=== PATIENT | female | born 1980 | race African-American/Black ===

== ENCOUNTER 2017-06-13 17:22 | Emergency (ER) | payer OTHER ==
[~2017-06-13] VITALS: Ht 160 cm; Wt 82.6 kg
[~2017-06-13 17:22] MED LIST: MULT1CAP28 PO
[2017-06-13 17:27] VITALS: BP 121/74
--- NOTE | 2017-06-13 17:48 | NUR ---
Patient ambulated to OF. RN evaluating patient.
--- NOTE | 2017-06-13 17:54 | NUR ---
36F BIB SELF C/O SHORTNESS OF BREATH AND MID-CHEST PAIN, PRESSURE, RADIATES TO BL UPPER BACK, 6/10 WHILE SLEEPING X THIS MORNING; MILD WHEEZING HEARD ON BL LOWER BASES AT THIS TIME; RR EVEN/UNLABORED, PT SPEAKING IN FULL, CLEAR SENTENCES AT THIS TIME; PT C/O DRY COUGH X 3 DAYS; PT STATES NO N/V/D AT THIS TIME; PT AA&OX4, PERRLA, STEADY GAIT; PT RESTING IN OF1, POSITIONED FOR COMFORT; ER MD MADE GARRETT OF STATUS. WILL CONTINUE TO MONITOR.
[2017-06-13] MEDS ORDERED: ALBUTEROL 0.083% 2.5 MG/3 ML NEBU INH ONE (18:10)
[2017-06-13] MEDS ORDERED: KETOROLAC 30 MG/ML VIAL IM ONE (18:10)
--- NOTE | 2017-06-13 18:24 | NUR ---
RT AT BEDSIDE FOR BREATHING TX.
--- NOTE | 2017-06-13 19:02 | NUR ---
Pt report given to LUCAS ARRIOLA. Transfer of care at this time.
[2017-06-13] MEDS ORDERED: ONDANSETRON 4 MG ODT PO ONE (19:05)
[2017-06-13 19:31] VITALS: BP 122/72
--- NOTE | 2017-06-13 19:31 | NUR ---
Patient discharged with v/s stable. Written and verbal after care instructions given and explained. Patient alert, oriented and verbalized understanding of instructions. Ambulatory with steady gait. All questions addressed prior to discharge. ID band removed. Patient advised to follow up with PMD. Rx of zofran 4mg, guaiatussinn 100mg, tamiflu 75mg, albuterol 90mcg, naprosyn 500mg. given. Patient educated on indication of medication including possible reaction and side effects. Opportunity to ask questions provided and answered.
== END 2017-06-13 19:31 | disposition home or self-care (01) ==
LOC: MED 17:22
DX: J11.1 Influenza due to unidentified influenza virus with other respiratory manifestations (principal); J20.9 Acute bronchitis, unspecified; Z79.899 Other long term (current) drug therapy
CPT/HCPCS: 71045; 94640; 96372; 99283; J1885; J7613; S0119